=== PATIENT | male | born 1975 | race Caucasian/White ===

== ENCOUNTER 2021-11-08 11:30 | Emergency (ER) | payer OTHER ==
[2021-11-08 12:02] VITALS: BP 171/78; PULSE 81; TEMP 98; BMI 28.5
[2021-11-08] MEDS ORDERED: KETOROLAC TROMETHAMINE 30 MG/1 ML VIAL IM ONE (12:19)
[2021-11-08] MEDS ORDERED: KETOROLAC TROMETHAMINE 30 MG/1 ML VIAL ONE (12:22)
== END 2021-11-08 12:34 | disposition home or self-care (01) ==
LOC: JERFT 11:30
PROC: 3E0233Z Introduction of Anti-inflammatory into Muscle, Percutaneous Approach (ICD-10-PCS; principal; 2021-11-08)
DX: L03.211 Cellulitis of face (principal)
CPT/HCPCS: 96372; 99284-25

== ENCOUNTER 2021-12-26 17:50 | Inpatient (IN) | payer OTHER ==
[2021-12-26 18:15] VITALS: BMI 26.2
[2021-12-26] MEDS ORDERED: ACETAMINOPHEN 325 MG TABLET (FP) PO PRN (20:50)
[2021-12-26] MEDS ORDERED: P-EPHED 60MG/TRIPROLIDI 2.5MG TABLET PO PRN (20:50)
[2021-12-26] MEDS ORDERED: BENZOCAINE/MENTHOL (CHLORASEPTIC ) LOZENGE MM PRN (20:50)
[2021-12-26] MEDS ORDERED: PROCHLORPERAZINE MALEATE 5 MG TABLET PO PRN (20:50)
[2021-12-26] MEDS ORDERED: BISMUTH SUBSALICYLATE 524 MG/30 ML PO PRN (20:50)
[2021-12-26] MEDS ORDERED: guaiFENesin 200 MG/10 ML 10 ML UNIT-DOSE CUPS PO PRN (20:50)
[2021-12-26] MEDS ORDERED: MAGNESIUM CITRATE 300 ML BOTTLE PO PRN (20:50)
[2021-12-26] MEDS ORDERED: MAGNESIUM HYDROX 2400MG/30ML ORAL SUSPENSION 30 ML CUP PO PRN (20:50)
[2021-12-26] MEDS ORDERED: MAG HYDROX/AL HYDROX/SIMETH 30 ML UNIT-DOSE CUP PO PRN (20:50)
[2021-12-26] MEDS ORDERED: DICYCLOMINE HCL 10 MG CAPSULE PO PRN (20:50)
[2021-12-26] MEDS ORDERED: LOPERAMIDE HCL 2 MG CAPSULE PO PRN (20:50)
[2021-12-26] MEDS ORDERED: NALOXONE HCL 0.4 MG/ML VIAL IM PRN (20:50)
[2021-12-27] MEDS: METHOCARBAMOL 500 MG TABLET PO PRN ×2 (00:44→17:29)
[2021-12-27] MEDS: MELATONIN 5 MG TABLETS PO SCH ×2 (00:45→22:46)
[2021-12-27] MEDS: THIAMINE HCL 100 MG TABLET (FP) PO SCH ×2 (00:50→22:46)
[2021-12-27] MEDS ORDERED: methaDONE HCL 10 MG TABLET PO SCH (08:00)
[2021-12-27] MEDS ORDERED: methaDONE HCL 10 MG TABLET ONE (09:17)
[2021-12-27] MEDS ORDERED: methaDONE HCL 40 MG DISPERSABLE TABLET ONE (09:18)
[2021-12-27] MEDS ORDERED: diazePAM 5 MG TABLET PO ONE (09:52)
[2021-12-27] MEDS ORDERED: cloNIDine HCL 0.1 MG TABLET PO PRN (09:53)
[2021-12-27] MEDS: methaDONE 40 MG, methaDONE 30 MG PO SCH (10:43)
[2021-12-27] MEDS: IBUPROFEN 400 MG TABLET (FP) PO PRN (10:44)
[2021-12-27] MEDS: NICOTINE 14 MG/24 HOURS TOPICAL PATCH TD SCH (10:47)
[2021-12-27] MEDS: PRENATAL VITAMINS W/ FOLIC ACID TABLET (FP) PO SCH (10:48)
[2021-12-27] MEDS: diazePAM 5 MG TABLET PO SCH ×3 (10:49→22:46)
[2021-12-27] MEDS: hydrOXYzine PAMOATE 25 MG CAPSULE (FP) PO PRN ×3 (12:52→22:46)
[2021-12-27] MEDS: ACETAMINOPHEN 325 MG TABLET (FP) PO PRN (12:52)
[2021-12-27] MEDS ORDERED: ONDANSETRON *ODT* 4 MG TABLET SL PRN (13:07)
[2021-12-27 14:20] LABS: CALCIUM 8.8 mg/dL (8.5-10.1); HEMATOCRIT 34.2 % (35.4-49); HEMOGLOBIN 12.3 GM/dL (11.7-16.9); MCH 35.3 pg (25.7-33.7); MCHC 35.9 g/dl (32.0-35.9); MEAN CELL VOLUME 98.4 fl (80-96); MEAN PLT VOLUME 8.5 fl (7.5-11.1); PLATELET COUNT 113 10^3/uL (134-434); RBC 3.47 M/mm3 (4.00-5.60); RDW 12.9 % (11.9-15.9); WHITE BLOOD COUNT 3.4 K/mm3 (4.0-10.0)
[2021-12-27 14:23] LABS: BLOOD UREA NITROGEN 15.5 mg/dL (7-18)
[2021-12-27 14:26] LABS: CREATININE 0.9 mg/dL (0.55-1.3)
[2021-12-27 14:27] LABS: TOT PROT 5.7 g/dl (6.4-8.2)
[2021-12-27 14:29] LABS: BILIRUBIN,TOTAL 0.5 mg/dL (0.2-1)
[2021-12-27] MEDS: diazePAM 5 MG TABLET PO PRN (19:57)
[2021-12-27] MEDS: NICOTINE POLACRILEX 2 MG GUM BUC PRN (20:02)
[2021-12-28] MEDS ORDERED: methaDONE HCL 40 MG DISPERSABLE TABLET ONE (04:15)
[2021-12-28] MEDS ORDERED: methaDONE HCL 10 MG TABLET ONE (04:15)
[2021-12-28 06:07] LABS: SARS-CoV-2 NAA Not Detected (Not Detected)
[2021-12-28 06:07] LABS: SARS-CoV-2 NAA Not Detected (Not Detected)
[2021-12-28] MEDS: diazePAM 5 MG TABLET PO SCH ×4 (06:32→22:11)
[2021-12-28] MEDS: methaDONE 40 MG, methaDONE 30 MG PO SCH (06:32)
[2021-12-28] MEDS: PRENATAL VITAMINS W/ FOLIC ACID TABLET (FP) PO SCH (10:35)
[2021-12-28] MEDS: NICOTINE 14 MG/24 HOURS TOPICAL PATCH TD SCH (10:35)
[2021-12-28] MEDS: IBUPROFEN 400 MG TABLET (FP) PO PRN ×2 (10:37→18:02)
[2021-12-28] MEDS: METHOCARBAMOL 500 MG TABLET PO PRN ×2 (10:37→22:11)
[2021-12-28] MEDS: diazePAM 5 MG TABLET PO PRN (13:03)
[2021-12-28] MEDS: NICOTINE POLACRILEX 2 MG GUM BUC PRN (18:03)
[2021-12-28] MEDS: THIAMINE HCL 100 MG TABLET (FP) PO SCH (22:10)
[2021-12-28] MEDS: hydrOXYzine PAMOATE 25 MG CAPSULE (FP) PO PRN (22:11)
[2021-12-28] MEDS: MELATONIN 5 MG TABLETS PO SCH (22:11)
[2021-12-29] MEDS ORDERED: methaDONE HCL 40 MG DISPERSABLE TABLET ONE (04:45)
[2021-12-29] MEDS ORDERED: methaDONE HCL 10 MG TABLET ONE (04:45)
[2021-12-29] MEDS: diazePAM 5 MG TABLET PO SCH ×3 (05:37→22:15)
[2021-12-29] MEDS: methaDONE 40 MG, methaDONE 30 MG PO SCH (05:38)
[2021-12-29] MEDS: IBUPROFEN 400 MG TABLET (FP) PO PRN ×2 (05:39→17:31)
[2021-12-29] MEDS: diazePAM 5 MG TABLET PO PRN ×2 (09:57→17:32)
[2021-12-29] MEDS: NICOTINE 14 MG/24 HOURS TOPICAL PATCH TD SCH (09:57)
[2021-12-29] MEDS: hydrOXYzine PAMOATE 25 MG CAPSULE (FP) PO PRN ×2 (09:58→22:16)
[2021-12-29] MEDS: ACETAMINOPHEN 325 MG TABLET (FP) PO PRN ×2 (09:59→22:16)
[2021-12-29] MEDS: PRENATAL VITAMINS W/ FOLIC ACID TABLET (FP) PO SCH (10:01)
[2021-12-29] MEDS ORDERED: POTASSIUM CHLORIDE TABS 20 MEQ TABLET.ER (FP) PO ONE (10:10)
[2021-12-29] MEDS: NICOTINE 10 MG CARTRIDGE (INHALER) IH PRN ×3 (12:42→22:18)
[2021-12-29] MEDS: LEVOTHYROXINE NA 100 MCG TABLET (FP) PO SCH (12:42)
[2021-12-29] MEDS: MELATONIN 5 MG TABLETS PO SCH (22:13)
[2021-12-29] MEDS: THIAMINE HCL 100 MG TABLET (FP) PO SCH (22:13)
[2021-12-29] MEDS: METHOCARBAMOL 500 MG TABLET PO PRN (22:13)
[2021-12-30] MEDS ORDERED: methaDONE HCL 10 MG TABLET ONE (04:18)
[2021-12-30] MEDS ORDERED: methaDONE HCL 40 MG DISPERSABLE TABLET ONE (04:18)
[2021-12-30] MEDS: diazePAM 5 MG TABLET PO SCH ×2 (06:21→17:21)
[2021-12-30] MEDS: methaDONE 40 MG, methaDONE 30 MG PO SCH (06:21)
[2021-12-30] MEDS: NICOTINE 10 MG CARTRIDGE (INHALER) IH PRN ×3 (06:21→17:25)
[2021-12-30] MEDS: IBUPROFEN 400 MG TABLET (FP) PO PRN (06:23)
[2021-12-30] MEDS: LEVOTHYROXINE NA 100 MCG TABLET (FP) PO SCH (07:34)
[2021-12-30] MEDS: METHOCARBAMOL 500 MG TABLET PO PRN ×2 (10:14→22:11)
[2021-12-30] MEDS: hydrOXYzine PAMOATE 25 MG CAPSULE (FP) PO PRN ×2 (10:14→22:11)
[2021-12-30] MEDS: ACETAMINOPHEN 325 MG TABLET (FP) PO PRN ×2 (10:14→17:23)
[2021-12-30] MEDS: NICOTINE 14 MG/24 HOURS TOPICAL PATCH TD SCH (10:15)
[2021-12-30] MEDS: PRENATAL VITAMINS W/ FOLIC ACID TABLET (FP) PO SCH (10:15)
[2021-12-30] MEDS: MELATONIN 5 MG TABLETS PO SCH (22:11)
[2021-12-30] MEDS: THIAMINE HCL 100 MG TABLET (FP) PO SCH (22:11)
[2021-12-31] MEDS ORDERED: methaDONE HCL 40 MG DISPERSABLE TABLET ONE (04:51)
[2021-12-31] MEDS ORDERED: methaDONE HCL 10 MG TABLET ONE (04:51)
[2021-12-31] MEDS ORDERED: diazePAM 5 MG TABLET PO ONE (06:00)
[2021-12-31] MEDS: LEVOTHYROXINE NA 100 MCG TABLET (FP) PO SCH (06:04)
[2021-12-31] MEDS: methaDONE 40 MG, methaDONE 30 MG PO SCH (06:04)
[2021-12-31] MEDS: IBUPROFEN 400 MG TABLET (FP) PO PRN (06:04)
[2021-12-31] MEDS: NICOTINE 10 MG CARTRIDGE (INHALER) IH PRN (06:08)
[2021-12-31 09:12] VITALS: BP 122/81; PULSE 84; TEMP 98.2
== END 2021-12-31 10:00 | disposition home or self-care (01) | DRG 773 ==
LOC: YASAS 17:50 → Y3N 22:47
PROVIDERS: ADMIT Allergy & Immunology; ATTEND Allergy & Immunology
PROC: HZ2ZZZZ Detoxification Services for Substance Abuse Treatment (ICD-10-PCS; principal; 2021-12-26)
DX: F10.230 Alcohol dependence with withdrawal, uncomplicated (principal); F13.230 Sedative, hypnotic or anxiolytic dependence with withdrawal, uncomplicated; F11.20 Opioid dependence, uncomplicated; F14.20 Cocaine dependence, uncomplicated; F17.210 Nicotine dependence, cigarettes, uncomplicated; F19.280 Other psychoactive substance dependence with psychoactive substance-induced anxiety disorder; F19.282 Other psychoactive substance dependence with psychoactive substance-induced sleep disorder; E03.9 Hypothyroidism, unspecified; K21.9 Gastro-esophageal reflux disease without esophagitis; M54.50 Low back pain, unspecified; G89.29 Other chronic pain; S92.352A Displaced fracture of fifth metatarsal bone, left foot, initial encounter for closed fracture; W19.XXXA Unspecified fall, initial encounter; Y92.9 Unspecified place or not applicable; Z86.19 Personal history of other infectious and parasitic diseases; Z99.89 Dependence on other enabling machines and devices; Z59.00 Homelessness unspecified
CPT/HCPCS: 36415; 73610-TC-LT-FY; 73630-TC-LT; 80053; 85027; 86780; 87811; 93005; 93010; C9803-CS; J0735; U0003; U0005

== ENCOUNTER 2022-03-01 11:05 | Emergency (ER) | payer OTHER ==
[2022-03-01 11:41] VITALS: BP 121/78; PULSE 86; TEMP 98.5; BMI 24.9
== END 2022-03-01 16:00 | disposition home or self-care (01) ==
LOC: JER 11:05 → JERFT 11:05
DX: S60.051A Contusion of right little finger without damage to nail, initial encounter (principal); M25.562 Pain in left knee; M79.672 Pain in left foot; W17.89XA Other fall from one level to another, initial encounter
CPT/HCPCS: 73140-TC-RT-FY; 73562-TC-LT-FY; 73630-TC-LT; 93971-TC; 99284-25